=== PATIENT | female | born 1980 | race Hispanic/Latino ===

== ENCOUNTER 2018-04-05 16:15 | Emergency (ER) | payer SELFPAY | END 2018-04-05 21:40 | disposition left against medical advice (07) | LOC: M ED 16:15 | DX: Z53.21 Procedure and treatment not carried out due to patient leaving prior to being seen by health care provider (principal) ==

== ENCOUNTER 2018-04-06 01:19 | Emergency (ER) | payer SELFPAY | END 2018-04-06 03:30 | disposition left against medical advice (07) | LOC: M ED 01:19 | DX: R10.9 Unspecified abdominal pain (principal); Z53.20 Procedure and treatment not carried out because of patient's decision for unspecified reasons ==

== ENCOUNTER 2018-04-06 21:56 | Emergency (ER) | payer OTHER, SELFPAY ==
[2018-04-06 23:20] LABS: BASO % 0.2 % (0.0-1.0); EOS # 0.1 10^3/uL (0.0-0.50); EOS % 0.5 % (0.0-3.0); HEMATOCRIT 29.1 % (36.0-47.0); HEMOGLOBIN 9.1 g/dl (12.0-15.5); IMMATURE GRANULOCYTE % 0.6 % (0-3.0); LYMPH # 2.4 10^3/uL (1.5-4.5); LYMPH % 18.8 % (24.0-44.0); MEAN CORPUSCULAR HEMOGLOBIN 21.1 pg (27.0-33.0); MEAN CORPUSCULAR HGB CONC 31.3 g/dl (32.0-36.5); MEAN CORPUSCULAR VOLUME 67.4 fl (80.0-96.0); MONO # 0.6 10^3/uL (0.0-0.8); MONO % 4.4 % (0.0-5.0); NEUTROPHILS # 9.5 10^3/uL (1.8-7.7); NEUTROPHILS % 75.5 % (36.0-66.0); PLATELET COUNT, AUTOMATED 287 10^3/uL (150-450); RED BLOOD COUNT 4.32 10^6/uL (4.00-5.40); RED CELL DISTRIBUTION WIDTH 25.2 % (11.5-14.5); WHITE BLOOD COUNT 12.6 10^3/uL (4.0-10.0)
[2018-04-06 23:45] LABS: INR 1.02; PROTHROMBIN TIME 13.5 SECONDS (12.1-14.4)
[2018-04-06 23:46] LABS: PARTIAL THROMBOPLASTIN TIME 28.6 SECONDS (25.4-37.6)
[2018-04-06 23:48] LABS: CONTROL LINE HCG INT CTR LINE PRESENT; HCG, SERUM QUALITATIVE NEGATIVE (NEGATIVE)
[2018-04-06 23:54] LABS: ALBUMIN 3.2 GM/DL (3.2-5.2); ALBUMIN/GLOBULIN RATIO 0.67 (1.00-1.93); ALKALINE PHOSPHATASE 155 U/L (45-117); ALT/SGPT 30 U/L (12-78); ANION GAP 6 MEQ/L (8-16); AST/SGOT 18 U/L (7-37); BILIRUBIN,DIRECT < 0.1 MG/DL (0.0-0.2); BILIRUBIN,TOTAL 0.3 MG/DL (0.2-1.0); BLOOD UREA NITROGEN 7 MG/DL (7-18); CALCIUM LEVEL 7.7 MG/DL (8.5-10.1); CARBON DIOXIDE LEVEL 26 MEQ/L (21-32); CHLORIDE LEVEL 108 MEQ/L (98-107); CREATININE FOR GFR 0.83 MG/DL (0.55-1.30); GLOMERULAR FILTRATION RATE > 60.0 (>60); GLUCOSE, FASTING 143 MG/DL (70-100); LIPASE 135 U/L (73-393); POTASSIUM SERUM 3.3 MEQ/L (3.5-5.1); SODIUM LEVEL 140 MEQ/L (136-145)
[2018-04-06] MEDS: NS 1,000 ML IV (23:57)
[2018-04-07] MEDS: MORPHINE 4 MG/ML 1ML VIAL/SYRINGE (J2270) IV ×2 (01:00→02:22)
[2018-04-07 02:26] LABS: CHLAMYDIA DNA AMPLIFICATION NEGATIVE (NEGATIVE); GC DNA AMPLIFICATION NEGATIVE (NEGATIVE)
[2018-04-07] MEDS: POTASSIUM CHLORIDE 10 MEQ SR TABLET PO (02:50)
[2018-04-07] MEDS: metroNIDAZOLE (FLAGYL) 500 MG TAB PO (02:53)
== END 2018-04-07 03:09 | disposition home or self-care (01) ==
LOC: M ED 04-07 03:09
DX: N76.0 Acute vaginitis (principal)
CPT/HCPCS: J2270

== ENCOUNTER 2018-04-08 12:01 | Emergency (ER) | payer OTHER ==
[2018-04-08 14:36] LABS: HEMATOCRIT 28.3 % (36.0-47.0); HEMOGLOBIN 8.6 g/dl (12.0-15.5); MEAN CORPUSCULAR HEMOGLOBIN 20.6 pg (27.0-33.0); MEAN CORPUSCULAR HGB CONC 30.4 g/dl (32.0-36.5); MEAN CORPUSCULAR VOLUME 67.9 fl (80.0-96.0); PLATELET COUNT, AUTOMATED 278 10^3/uL (150-450); RED BLOOD COUNT 4.17 10^6/uL (4.00-5.40); RED CELL DISTRIBUTION WIDTH 25.4 % (11.5-14.5); WHITE BLOOD COUNT 9.6 10^3/uL (4.0-10.0)
[2018-04-08 14:48] LABS: INR 1.06; PROTHROMBIN TIME 13.9 SECONDS (12.1-14.4)
[2018-04-08 14:53] LABS: POSITIVE MORPH POS FLAG
[2018-04-08 15:00] LABS: ANION GAP 7 MEQ/L (8-16); BLOOD UREA NITROGEN 7 MG/DL (7-18); CALCIUM LEVEL 8.4 MG/DL (8.5-10.1); CARBON DIOXIDE LEVEL 27 MEQ/L (21-32); CHLORIDE LEVEL 108 MEQ/L (98-107); CREATININE FOR GFR 0.66 MG/DL (0.55-1.30); GLOMERULAR FILTRATION RATE > 60.0 (>60); GLUCOSE, FASTING 80 MG/DL (70-100); POTASSIUM SERUM 3.8 MEQ/L (3.5-5.1); SODIUM LEVEL 142 MEQ/L (136-145)
[2018-04-08] MEDS: NORCO, ANEXSIA 5/325MG TABLET (HYDROcodone/ACETAMINOPHEN) PO (15:13)
== END 2018-04-08 16:10 | disposition home or self-care (01) ==
LOC: M ED 12:01
DX: N93.8 Other specified abnormal uterine and vaginal bleeding (principal)
CPT/HCPCS: 80048

== ENCOUNTER → 2018-07-01 | Outpatient (REF) | payer OTHER ==
[~2018-07-01] MED LIST: FLAG500T PO; IBUP80TA PO; NORCOTAB PO; PROV10TA PO
[2018-07-01 18:37] LABS: ALBUMIN 3.2 GM/DL (3.2-5.2); ALT/SGPT 25 U/L (12-78); BILIRUBIN,TOTAL 0.3 MG/DL (0.2-1.0); BLOOD UREA NITROGEN 7 MG/DL (7-18); CARBON DIOXIDE LEVEL 28 MEQ/L (21-32); CHLORIDE LEVEL 107 MEQ/L (98-107); CHOLESTEROL LEVEL 147 MG/DL (<200); CHOLESTEROL RISK RATIO 2.826 (<5); FERRITIN 6 NG/ML (8-252); FREE T4 0.89 NG/DL (0.76-1.46); GLOMERULAR FILTRATION RATE > 60.0 (>60); GLUCOSE, FASTING 76 MG/DL (70-100); HDL CHOLESTEROL 52 MG/DL (>40); IRON (FE) 17 UG/DL (50-170); LDL CHOLESTEROL 82 MG/DL (<100); NON-HDL-C 95 MG/DL; PERCENT SATURATION 4.8 % (13.2-45.0); POTASSIUM SERUM 4.2 MEQ/L (3.5-5.1); SODIUM LEVEL 142 MEQ/L (136-145); TOTAL IRON BINDING CAPACITY 357 UG/DL (250-450); TOTAL PROTEIN 7.8 GM/DL (6.4-8.2); TRIGLYCERIDES LEVEL 67 MG/DL (<150)
[2018-07-01 18:38] LABS: VITAMIN B12 LEVEL 730 PG/ML (247-911)
[2018-07-01 19:00] LABS: HEMATOCRIT 25.9 % (36.0-47.0); HEMOGLOBIN 7.2 g/dl (12.0-15.5); MEAN CORPUSCULAR HEMOGLOBIN 16.7 pg (27.0-33.0); MEAN CORPUSCULAR HGB CONC 27.8 g/dl (32.0-36.5); MEAN CORPUSCULAR VOLUME 60.2 fl (80.0-96.0); PLATELET COUNT, AUTOMATED 282 10^3/uL (150-450); WHITE BLOOD COUNT 10.2 10^3/uL (4.0-10.0)
[2018-07-02 12:07] LABS: HEPATITIS C VIRUS ABY INDEX 0.1 INDEX (<0.8); HIV 1&2 SCREEN CENTAUR NEGATIVE (NEGATIVE)
== END ==
LOC: M SFHCPLAZ 15:18
PROVIDERS: ATTEND Physician Assistant
DX: F31.9 Bipolar disorder, unspecified (principal); D64.9 Anemia, unspecified; Z11.59 Encounter for screening for other viral diseases; Z11.4 Encounter for screening for human immunodeficiency virus [HIV]; Z13.220 Encounter for screening for lipoid disorders; Z23 Encounter for immunization
CPT/HCPCS: 36415; 80053; 80061; 82607; 82728; 83550; 84439; 84443; 85027; 85046; 86803; 87389; 90471; 90686; G0463

== ENCOUNTER 2018-08-12 12:20 | Outpatient (CLI) | payer OTHER ==
[~2018-08-12] VITALS: Ht 157.5 cm; Wt 90.9 kg
[~2018-08-12 12:20] MED LIST changes: +IRON SUCROSE 25 MG in NS 50 ML IV ONE; +IRON SUCROSE 75 MG in NS 100 ML IV ONE
[2018-08-12 12:30] VITALS: BP 140/68
[2018-08-12 13:15] VITALS: BP 113/64
[2018-08-12 14:15] VITALS: BP 138/79
[2018-08-12 15:10] VITALS: BP 118/69
[2018-08-12 15:40] VITALS: BP 118/67
== END 2018-08-12 15:40 | disposition home or self-care (01) ==
LOC: M INFU 12:20
PROVIDERS: ATTEND Physician Assistant
DX: D50.0 Iron deficiency anemia secondary to blood loss (chronic) (principal)
CPT/HCPCS: 96365; 96366; J1756

== ENCOUNTER 2018-10-13 18:03 | Emergency (ER) | payer OTHER ==
[~2018-10-13] VITALS: Ht 157.5 cm; Wt 93.5 kg
[~2018-10-13 18:03] MED LIST changes: +HYDR-3715 PO; -IRON SUCROSE 25 MG in NS 50 ML IV ONE; -IRON SUCROSE 75 MG in NS 100 ML IV ONE; -NORCOTAB PO
[2018-10-13] MEDS ORDERED: TRAZ1TAB14 (18:28)
[2018-10-13] MEDS ORDERED: ARIP1TAB10 (18:28)
[2018-10-13] MEDS ORDERED: TOPI25TA10 (18:28)
[2018-10-13 19:22] LABS: INFLUENZA A AMPLIFICATION NEGATIVE (NEGATIVE); INFLUENZA B AMPLIFICATION NEGATIVE (NEGATIVE)
[2018-10-13] MEDS ORDERED: MUCI600T37 PO (20:10)
[2018-10-13] MEDS ORDERED: BENZ200C70 PO (20:10)
[2018-10-13 20:24] VITALS: BP 133/78
--- NOTE | 2018-10-13 20:44 | REP ---
clinical: Cough and fever . Comparison: None . Findings: The mediastinum and cardiac silhouette are stable and within normal limits for portable technique. The lung chu are clear without acute consolidation, effusion, or pneumothorax. Skeletal structures are intact. Impression: No acute cardiopulmonary process appreciated. Electronically Signed by Stuart Rivas MD 10/13/2018 08:36 P
== END 2018-10-13 20:25 | disposition home or self-care (01) ==
LOC: M ED 18:03
DX: J06.9 Acute upper respiratory infection, unspecified (principal)

== ENCOUNTER 2018-10-21 23:32 | Inpatient (IN) | payer OTHER ==
[~2018-10-21] VITALS: Ht 157.5 cm; Wt 94.3 kg
[~2018-10-21 23:32] MED LIST changes: +ARIP1TAB10; +BENZ200C70 PO; +MUCI600T37 PO; +TOPI25TA10; +TRAZ1TAB14
[2018-10-21] MEDS ORDERED: IRON65TA (23:37)
[2018-10-22 00:41] LABS: ALBUMIN 3.1 GM/DL (3.2-5.2); ALT/SGPT 36 U/L (12-78); BILIRUBIN,TOTAL 0.5 MG/DL (0.2-1.0); BLOOD UREA NITROGEN 11 MG/DL (7-18); C REACTIVE PROTEIN QUANTITATIV 4.42 MG/DL (0.00-0.30); CALCIUM LEVEL 7.9 MG/DL (8.5-10.1); CARBON DIOXIDE LEVEL 26 MEQ/L (21-32); CHLORIDE LEVEL 105 MEQ/L (98-107); CREATININE FOR GFR 0.78 MG/DL (0.55-1.30); GLOMERULAR FILTRATION RATE > 60.0 (>60); GLUCOSE, FASTING 113 MG/DL (70-100); LIPASE 120 U/L (73-393); POTASSIUM SERUM 3.7 MEQ/L (3.5-5.1); SODIUM LEVEL 138 MEQ/L (136-145); TOTAL PROTEIN 7.9 GM/DL (6.4-8.2)
[2018-10-22 00:46] LABS: BASO % 0.2 % (0.0-1.0); EOS # 0.2 10^3/uL (0.0-0.50); EOS % 1.8 % (0.0-3.0); HEMATOCRIT 23.7 % (36.0-47.0); LYMPH # 2.8 10^3/uL (1.5-4.5); LYMPH % 24.3 % (24.0-44.0); MEAN CORPUSCULAR HEMOGLOBIN 17.4 pg (27.0-33.0); MEAN CORPUSCULAR HGB CONC 29.1 g/dl (32.0-36.5); MEAN CORPUSCULAR VOLUME 59.7 fl (80.0-96.0); MONO # 0.5 10^3/uL (0.0-0.8); MONO % 4.1 % (0.0-5.0); NEUTROPHILS # 7.8 10^3/uL (1.8-7.7); NEUTROPHILS % 68.7 % (36.0-66.0); PLATELET COUNT, AUTOMATED 250 10^3/uL (150-450); RED BLOOD COUNT 3.97 10^6/uL (4.00-5.40); WHITE BLOOD COUNT 11.4 10^3/uL (4.0-10.0)
[2018-10-22 00:47] LABS: HEMOGLOBIN 6.9 g/dl (12.0-15.5)
[2018-10-22 01:10] LABS: URINE PREG TEST NEGATIVE (NEGATIVE)
[2018-10-22] MEDS ORDERED: ISOVUE-370 76% 100ML VIAL (Q9967) As Ordered ONE (01:56)
[2018-10-22] MEDS ORDERED: ONDANSETRON 4MG/2ML VIAL (J2405) IV ONE (02:00)
[2018-10-22 02:24] LABS: INR 1.1; PROTHROMBIN TIME 14.3 SECONDS (12.1-14.4)
[2018-10-22 02:25] LABS: PARTIAL THROMBOPLASTIN TIME 29.9 SECONDS (25.4-37.6)
[2018-10-22] MEDS: MORPHINE 4 MG/ML 1ML VIAL/SYRINGE (J2270) IV PRN ×2 (02:26→05:37)
--- NOTE | 2018-10-22 04:05 | REPVR ---
EXAM: CT Abdomen and Pelvis With Contrast EXAM DATE/TIME: 10/22/2018 2:29 AM CLINICAL HISTORY: 38 years old, female; Pain; Abdominal pain; Additional info: Abd pain TECHNIQUE: Imaging protocol: Axial computed tomography images of the abdomen and pelvis with intravenous contrast. Coronal and sagittal reformatted images were created and reviewed. Radiation optimization: All CT scans at this facility use at least one of these dose optimization techniques: automated exposure control; mA and/or kV adjustment per patient size (includes targeted exams where dose is matched to clinical indication); or iterative reconstruction. Contrast material: isovue 370 Contrast volume: 100 ml Contrast route: iv COMPARISON: US PELVIC NON-OB COMPLETE 04/07/2018 1:16 AM FINDINGS: Lower thorax: No acute findings. ABDOMEN: Liver: The spleen measures 12.8 cm and is borderline relative to the liver. Gallbladder and bile ducts: Status post cholecystectomy. Pancreas: Normal. No ductal dilation. Spleen: Normal. No splenomegaly. Adrenals: Normal. No mass. Kidneys and ureters: Minimal nonobstructing left renal calculus. Stomach and bowel: Borderline distention of proximal jejunum which is nonspecific and may reflect volume loading. Enteritis is not excluded. Appendix: A normal appendix is seen. PELVIS: Bladder: Unremarkable as visualized. Reproductive: Unremarkable as visualized. ABDOMEN and PELVIS: Intraperitoneal space: Normal. No free air. No significant fluid collection. Bones/joints: Degenerative disc and facet change at L5-S1. Soft tissues: Unremarkable. Vasculature: Normal. No abdominal aortic aneurysm. Lymph nodes: Normal. No enlarged lymph nodes. IMPRESSION: 1. Minimal nonobstructing left renal calculus. 2. Status post cholecystectomy. 3. Borderline splenomegaly. 4. Borderline distention of proximal jejunum which may reflect volume loading. Enteritis is not excluded. Electronically signed by: Manolo Syed On 10/22/2018 04:04:38 AM
[2018-10-22] MEDS ORDERED: ACETAMINOPHEN TAB 650MG DOSE (2X325MG) PO PRN (05:00)
--- NOTE | 2018-10-22 05:28 | HPEPDOC ---
[facility] Medical History & Physical Date of Admission Oct 22, 2018 Primary Care Physician: CARMELO IRVIN PA-C History and Physical CHIEF COMPLAINT: vaginal bleeding and lightheadedness HISTORY OF PRESENT ILLNESS: Jennifer Peres is a 38 YO with known history of uterine fibroids (diagnosed in 2011 in [place], [place]) who presents with heavy vaginal bleeding, palpitations and lightheadedness. She last bled for over 2 weeks and it stopped four days ago. She states that she used to live in [place], [place] where she first experienced heavy intermittent vaginal bleeding and was told by her Mooner that she has several large fibroids that needed to be removed surgically. She was never able to get the surgery and since that time has been bleeding intermittently, sometimes heavy enough to keep her bedridden for several days, accompanied by severe lower abdominal and pelvic pain. Gynecologic history is significant for 5 children, all uncomplicated vaginal births, with last child born in 2003. She does not report any symptoms of menopause at this time, and her menstrual cycle is unpredictable. She is not on any contraceptives. Otherwise, she has not been sick recently, denies any SOB or CP, no headaches, no fevers/chills/nausea/vomiting. She has not had any black tarry or maroon stools and denies any dysuria. She does not follow with a PCP. PAST MEDICAL HISTORY: 1. Uterine fibroids 2. Depression 3. Generalized Anxiety Disorder 4. Schizophrenia PAST SURGICAL HISTORY: 1. Cholecystectomy SOCIAL HISTORY: Lives with her sister and children in [place]. Never smoker. Denies EtOH or other drugs. Patient's first language is [place] Irish, but she is able to communicate in Azerbaijani. FAMILY HISTORY: Mother had fibroids ALLERGIES: Please see below. REVIEW OF SYSTEMS: CONSTITUTIONAL: reports weakness, lightheadedness CARDIOVASCULAR: palpitations RESPIRATORY: no SOB, no dyspnea GASTROINTESTINAL: no diarrhea, reports lower abdominal pain GENITOURINARY: no dysuria SKIN: no rashes MUSCULOSKELETAL: no muscle weakness NEUROLOGICAL: no loss of sensation, no burning PSYCHIATRIC: reports depression, anxiety ENDOCRINE: no hot/cold intolerance HEMATOLOGIC/LYMPHATIC: no easy bruising HOME MEDICATIONS: Please see below. PHYSICAL EXAMINATION: VITAL SIGNS: Temperature 97.9, pulse 84, respiratory rate 20, blood pressure 114/59, pulse oximetry 98% on room air. GENERAL APPEARANCE: laying in bed, comfortable, no acute distress, appears stated age HEENT: moist mucus membranes, no thyromegaly, fair dentition CARDIOVASCULAR: RRR, no murmurs/rubs/gallops LUNGS: clear to auscultation bilaterally without any adventitious breath sounds appreciated ABDOMEN: tender to deep palpation in RLQ and LLQ; soft, +BS, no organomegaly MUSCULOSKELETAL: moves all extremities well EXTREMITIES: no clubbing/cyanosis/edema NEUROLOGICAL: CN 2-12 intact without focal deficits PSYCHIATRIC: somewhat anxious affect LABORATORY DATA: See below. IMAGING: CT Abdomen/pelvis: 1. Minimal nonobstructing left renal calculus. 2. Status post cholecystectomy. 3. Borderline splenomegaly. 4. Borderline distention of proximal jejunum which may reflect volume loading. Enteritis is not excluded. MICROBIOLOGY: Please see below. ASSESSMENT: This is a 38 YO F with known history of uterine fibroids who presents with several days history of heavy uterine bleeding and lower abdominal pain found to be anemic with Hgb 6.9 most likely 2/2 bleeding uterine fibroids PLAN: 1. Microcytic Anemia: Patient states she has had a ~10 day history of recent heavy bleeding and lower abdominal pain and subsequent lightheadedness. Likely 2/2 abnormal uterine bleeding from fibroids. Otherwise, she has no history of bleeding disorder and is not on any medications causing hyperprolactinemia. No history of thyroid disease or hypothalamic dysfunction. She does have an elevated CRP, suggesting inflammatory cause of abnormal uterine bleeding. -4U pRBCs ordered in ED -Will get follow up CBC 2. Uterine fibroids: -Patient will need Gynecology consult in AM -Abdominal US states reproductive organs unremarkable; patient may need vaginal ultrasound for further investigation 3. History of Depression and Anxiety: -Patient may benefit from outpatient screening. Will need PCP at discharge. DVT Ppx: stockings CODE STATUS: FULL CODE Vital Signs Vital Signs Date Time Temp Pulse Resp B/P (MAP) Pulse Ox O2 Delivery O2 Flow Rate FiO2 10/22/18 04:00 20 114/59 (77) 98 Room Air 10/22/18 03:47 84 10/22/18 02:26 97.9 Laboratory Data Labs 24H Laboratory Tests 2 10/22/18 00:06: Immature Granulocyte % (Auto) 0.9, White Blood Count 11.4H, Red Blood Count 3.97L, Hemoglobin 6.9*L, Hematocrit 23.7L, Mean Corpuscular Volume 59.7L, Mean Corpuscular Hemoglobin 17.4L, Mean Corpuscular Hemoglobin Concent 29.1L, Red Cell Distribution Width 20.2H, Platelet Count 250, Neutrophils (%) (Auto) 68.7H, Lymphocytes (%) (Auto) 24.3, Monocytes (%) (Auto) 4.1, Eosinophils (%) (Auto) 1.8, Basophils (%) (Auto) 0.2, Neutrophils # (Auto) 7.8H, Lymphocytes # (Auto) 2.8, Monocytes # (Auto) 0.5, Eosinophils # (Auto) 0.2, Basophils # (Auto) 0.0, N ucleated Red Blood Cells % (auto) 0.0, Prothrombin Time 14.3, Prothromb Time International Ratio 1.10, Activated Partial Thromboplast Time 29.9, Anion Gap 7L, Glomerular Filtration Rate > 60.0, Blood Urea Nitrogen 11, Creatinine 0.78, Sodium Level 138, Potassium Level 3.7, Chloride Level 105, Carbon Dioxide Level 26, Calcium Level 7.9L, Aspartate Amino Transf (AST/SGOT) 16, Alanine Aminotransferase (ALT/SGPT) 36, Alkaline Phosphatase 163H, Total Bilirubin 0.5, Total Protein 7.9, Albumin 3.1L, C-Reactive Protein, Quantitative 4.42H, Albumin/Globulin Ratio 0.65L, Lipase 120 10/22/18 00:54: Urine Color YELLOW, Urine Appearance CLOUDYH, Urine pH 6.0, Urine Specific [place] 1.006, Urine Protein NEGATIVE, Urine Glucose (UA) NEGATIVE, Urine Ketones NEGATIVE, Urine Blood 2+H, Urine Nitrite NEGATIVE, Urine Bilirubin NEGATIVE, Urine Urobilinogen 0.2, Urine Leukocyte Esterase 3+H, Urine WBC (Auto) 3, Urine RBC (Auto) 13H, Urine Hyaline Casts (Auto) 0, Urine Bacteria (Auto) 2+H , Urine Squamous Epithelial Cells 11, Urine Sperm (Auto) , Urine Test NEGATIVE CBC/BMP Laboratory Tests 10/22/18 00:06 Red Blood Count 3.97 L, Mean Corpuscular Volume 59.7 L, Mean Corpuscular Hemoglobin 17.4 L, Mean Corpuscular Hemoglobin Concent 29.1 L, Red Cell Distr ibution Width 20.2 H, Neutrophils (%) (Auto) 68.7 H, Lymphocytes (%) (Auto) 24.3, Monocytes (%) (Auto) 4.1, Eosinophils (%) (Auto) 1.8, Basophils (%) (Auto) 0.2, Neutrophils # (Auto) 7.8 H, Lymphocytes # (Auto) 2.8, Monocytes # (Auto) 0.5, Eosinophils # (Auto) 0.2, Basophils # (Auto) 0.0, Calcium Level 7.9 L, Aspartate Amino Transf (AST/SGOT) 16, Alanine Aminotransferase (ALT/SGPT) 36, Alkaline Phosphatase 163 H, Total Bilirubin 0.5, Total Protein 7.9, Albumin 3.1 L Microbiology Microbiology 10/22/18 Urine Culture, Received Pending Home Medications No Active Prescriptions or Reported Meds Allergies Coded Allergies: No Known Allergies (Unverified , 10/21/18) GME ATTESTATION GME ATTESTATION My faculty preceptor for this patient encounter was physically present during the encounter and was fully available. All aspects of the patient interview, e xamination, medical decision making process, and medical care plan development were reviewed and approved by the faculty preceptor. The faculty preceptor is aware and concurs with the plan as stated in the body of this note and will attest to such by his/her cosignature. ATTENDING NOTE ATTENDING ATTESTATION: I discussed and reviewed the findings and plan with resident. I have personally assessed patient at bedside and agreed with resident's assessment and plans. KIKO CONWAY MD Oct 22, 2018 05:28 PIETER SCOTT MD Oct 22, 2018 06:35
[2018-10-22 06:30] VITALS: BP 124/76
[2018-10-22 07:24] LABS: FREE T4 0.98 NG/DL (0.76-1.46)
[2018-10-22 07:36] LABS: BLOOD UREA NITROGEN 8 MG/DL (7-18); CALCIUM LEVEL 7.9 MG/DL (8.5-10.1); CARBON DIOXIDE LEVEL 25 MEQ/L (21-32); CHLORIDE LEVEL 107 MEQ/L (98-107); CREATININE FOR GFR 0.67 MG/DL (0.55-1.30); GLOMERULAR FILTRATION RATE > 60.0 (>60); GLUCOSE, FASTING 109 MG/DL (70-100); POTASSIUM SERUM 3.9 MEQ/L (3.5-5.1); SODIUM LEVEL 138 MEQ/L (136-145)
[2018-10-22 07:36] LABS: HEMATOCRIT 26.2 % (36.0-47.0); HEMOGLOBIN 7.7 g/dl (12.0-15.5); MEAN CORPUSCULAR HEMOGLOBIN 18.2 pg (27.0-33.0); MEAN CORPUSCULAR HGB CONC 29.4 g/dl (32.0-36.5); MEAN CORPUSCULAR VOLUME 61.8 fl (80.0-96.0); PLATELET COUNT, AUTOMATED 239 10^3/uL (150-450); RED BLOOD COUNT 4.24 10^6/uL (4.00-5.40); WHITE BLOOD COUNT 10.5 10^3/uL (4.0-10.0)
[2018-10-22 10:00] VITALS: BP 117/60
--- NOTE | 2018-10-22 10:56 | IPNPDOC ---
Subjective Date Seen The patient was seen on 10/22/18. Subjective Chief Complaint/HPI Wilmar does not speak Mohawk well. Staff in process of locating IPAD autobody technician device She was transfused 1 units PRBC. Still feels lightheaded and slightly SOB. No CP. No vaginal bleeding since Thursday. Continues to have lower abdominal pain Constitutional: Denies: Chills, Fever Pulmonary: Reports: Dyspnea; Denies: Cough Cardiovascular: Denies: Chest Pain, Palpitations Gastrointestinal: Reports: Abdominal Pain; Denies: Nausea, Vomiting, Diarrhea, Constipation, Melena, Hematochezia Genitourinary: Denies: Dysuria, Frequency, Incontinence, Hematuria Objective Physical Examination General Exam: Positive: Alert, No Acute Distress Chest Exam: Positive: Clear to auscultation; Negative: Rales, Rhonchi, Wheezing Heart Exam: Positive: Rate Normal, Regular Rhythm Abdomen Exam: Positive: Normal bowel sounds, Soft, Tenderness (diffuse lower abd tenderness iwhtout guard) Assessment /Plan Problems (1) Symptomatic anemia Status: Acute Problem Text: Hgb improved after 1 unit PRBC - now = 7.7, but still lightheaded and slightly SOB. I will transfuse another unit today (2) Dysfunctional uterine bleeding Status: Chronic Problem Text: Consult ATHLETICS DIRECTOR Having pelvic pain- get pelvic US Give ibuprofen prn (3) Bipolar 1 disorder Status: Chronic Problem Text: Per office note from Rafa Mohan in July 2018, her Trazadone, Tomapax and Hydroxzine were refilled but she did not pick them up due to lack of funds Was supposed to hav appt with on July We will need to get autobody technician to determine if she is taking her meds and following with Plan/VTE VTE Prophylaxis Ordered?: Yes VTE Exclusion Mechanical Proph: Low Risk for VTE VTE Exclusion Pharmacological: Active Bleeding (SCD/TEDS) VS, I&O, 24H, Fishbone Vital Signs/I&O Vital Signs Date Time Temp Pulse Resp B/P (MAP) Pulse Ox O2 Delivery O2 Flow Rate FiO2 10/22/18 10:00 97.5 81 18 117/60 (79) 98 10/22/18 05:45 Room Air Laboratory Data 24H LABS Laboratory Tests 2 10/22/18 00:06: Immature Granulocyte % (Auto) 0.9, White Blood Count 11.4H, Red Blood Count 3.97L, Hemoglobin 6.9*L, Hematocrit 23.7L, Mean Corpuscular Volume 59.7L, Mean Corpuscular Hemoglobin 17.4L, Mean Corpuscular Hemoglobin Concent 29.1L, Red Cell Distribution Width 20.2H, Platelet Count 250, Neutrophils (%) (Auto) 68.7H, Lymphocytes (%) (Auto) 24.3, Monocytes (%) (Auto) 4.1, Eosinophils (%) (Auto) 1.8, Basophils (%) (Auto) 0.2, Neutrophils # (Auto) 7.8H, Lymphocytes # (Auto) 2.8, Monocytes # (Auto) 0.5, Eosinophils # (Auto) 0.2, Basophils # (Auto) 0.0, Nucleated Red Blood Cells % (auto) 0.0, Prothrombin Time 14.3, Prothromb Time I nternational Ratio 1.10, Activated Partial Thromboplast Time 29.9, Anion Gap 7L, Glomerular Filtration Rate > 60.0, Blood Urea Nitrogen 11, Creatinine 0.78, Sodium Level 138, Potassium Level 3.7, Chloride Level 105, Carbon Dioxide Level 26, Calcium Level 7.9L, Aspartate Amino Transf (AST/SGOT) 16, Alanine Aminotransferase (ALT/SGPT) 36, Alkaline Phosphatase 163H, Total Bilirubin 0.5, Total Protein 7.9, Albumin 3.1L, C-Reactive Protein, Quantitative 4.42H, Albumin/Globulin Ratio 0.65L, Lipase 120 10/22/18 00:54: Urine Color YELLOW, Urine Appearance CLOUDYH, Urine pH 6.0, Urine Specific [place] 1.006, Urine Protein NEGATIVE, Urine Glucose (UA) NEGATIVE, Urine Ketones NEGATIVE, Urine Blood 2+H, Urine Nitrite NEGATIVE, Urine Bilirubin NEGATIVE, Urine Urobilinogen 0.2, Urine Leukocyte Esterase 3+H, Urine WBC (Auto) 3, Urine RBC (Auto) 13H, Urine Hyaline Casts (Auto) 0, Urine Bacteria (Auto) 2+H, Urine Squamous Epithelial Cells 11, Urine Sperm (Auto) , Urine Test NEGATIVE 10/22/18 06:03: Nucleated Red Blood Cells % (auto) 0.2H 10/22/18 06:05: Anion Gap 6L, Glomerular Filtration Rate > 60.0, Blood Urea Nitrogen 8, Creati nine 0.67, Sodium Level 138, Potassium Level 3.9, Chloride Level 107, Carbon Dioxide Level 25, Calcium Level 7.9L, Thyroid Stimulating Hormone (TSH) 5.890H, Free Thyroxine 0.98 CBC/BMP Laboratory Tests 10/22/18 00:06 Red Blood Count 3.97 L, Mean Corpuscular Volume 59.7 L, Mean Corpuscular Hemoglobin 17.4 L, Mean Corpuscular Hemoglobin Concent 29.1 L, Red Cell Distribution Width 20.2 H, Neutrophils (%) (Auto) 68.7 H, Lymphocytes (%) (Auto) 24.3, Monocytes (%) (Auto) 4.1, Eosinophils (%) (Auto) 1.8, Basophils (%) (Auto) 0.2, Neutrophils # (Auto) 7.8 H, Lymphocytes # (Auto) 2.8, Monocytes # (Auto) 0.5, Eosinophils # (Auto) 0.2, Basophils # (Auto) 0.0, Calcium Level 7.9 L, A spartate Amino Transf (AST/SGOT) 16, Alanine Aminotransferase (ALT/SGPT) 36, Alkaline Phosphatase 163 H, Total Bilirubin 0.5, Total Protein 7.9, Albumin 3.1 L 10/22/18 06:03 Red Blood Count 4.24, Mean Corpuscular Volume 61.8 L, Mean Corpuscular Hemoglobin 18.2 L, Mean Corpuscular Hemoglobin Concent 29.4 L, Red Cell Distribution Width 22.9 H 10/22/18 06:05 Calcium Level 7.9 L Microbiology Microbiology 10/22/18 Urine Culture, Received Pending NIA LAM PA-C Oct 22, 2018 10:56
[2018-10-22] MEDS: KETOROLAC 30 MG/ML VIAL (J1885) IV PRN ×2 (12:42→20:48)
--- NOTE | 2018-10-22 13:41 | REP ---
PELVIC ULTRASOUND: Real-time sonographic evaluation of the pelvis is performed utilizing transabdominal and endovaginal technique. Comparison made with a prior study of 04/07/2018. Bladder measures 7.2 x 3.5 x 7.9 cm. The uterus measures 10.0 x 4.9 x 5.6 cm. Endometrial thickness is 14 mm. Nabothian cysts are seen in the region of the cervix. Right ovary is enlarged measuring 6.6 x 3.6 x 8.5 cm. Multiple cysts are seen in the right ovary, come simple in appearance and others appear hemorrhagic. Largest complex cyst is 4.4 x 3.6 x 4.3 cm. There are two simple appearing cysts 5.2 x 4.8 x 2.9 cm and 3.1 x 2.9 x 3.0 cm. These have increased since prior pelvic ultrasound. No cyst is seen in the left ovary. There is no torsion with duplex Doppler evaluation, RI right ovary 0.56 and left ovary 0.45. No free fluid is seen. IMPRESSION: Endometrial thickness is 14 mm. Nabothian cysts are seen in the region of the cervix. Multiple right ovarian cyst as discussed above. These have increased since prior ultrasound of 04/07/2018. Consider CNC OPERATOR PROGRAMMER consult, and I would recommend followup ultrasound in about 2 months if no intervention is planned. Electronically Signed by Rafa Long MD 10/22/2018 04:19 P
[2018-10-22 14:00] VITALS: BP 121/87
--- NOTE | 2018-10-22 16:54 | IPNPDOC ---
Text Note Date of Service The patient was seen on 10/22/18. NOTE OBGYN consult Whole interview done with the assistance of the ipad fixer supervisor 38 YO with known history of uterine fibroids (diagnosed in 2011 in [place], [place]) who presents with heavy vaginal bleeding, palpitations and lightheadedness. She last bled for over 2 weeks and it stopped four days ago. She states that she used to live in [place], [place] where she first experienced heavy intermittent vaginal bleeding and was told by her Gantry Crane Operator that she has several large fibroids that needed to be removed surgically. She was never able to get the surgery and since that time has been bleeding intermittently, sometimes heavy enough to keep her bedridden for several days, accompanied by severe lower abdominal and pelvic pain. Has been transfused 4 different times. Gynecologic history is significant for 5 children, all uncomplicated vaginal births, with last child born in 2003. She does not report any symptoms of menopause at this time, and her menstrual cycle is unpredictable. She is not on any contraceptives. Otherwise, she has not been sick recently, denies any SOB or CP or significant abdominal pain, no headaches, no fevers/chills/nausea/vomting/weight loss. Has had one unit of blood in the ED and states she feels somewhat better but is still dizzy when she stands up and walks ro the bathroom. PAST MEDICAL HISTORY: 1. Uterine fibroids 2. Bipolar Depression 3. Generalized Anxiety Disorder PAST SURGICAL HISTORY: No cesareans 1. Cholecystectomy 2. BTL in 2003, done lapartoscopically SOCIAL HISTORY: Lives with her sister (bilingual) and children in [place]. Never smoker. Denies EtOH or other drugs. Safe at home. Patient's first language is Irish, but she is able to communicate in Burundian. 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 FAMILY HISTORY: Mother had fibroids ALLERGIES: Please see below. Meds: denies CT: IMPRESSION: 1. Minimal nonobstructing left renal calculus. 2. Status post cholecystectomy. 3. Borderline splenomegaly. 4. Borderline distention of proximal jejunum which may reflect volume loading. Enteritis is not excluded. PELVIC ULTRASOUND: Real-time sonographic evaluation of the pelvis is performed utilizing transabdominal and endovaginal technique. Comparison made with a prior study of 04/07/2018. Bladder measures 7.2 x 3.5 x 7.9 cm. The uterus measures 10.0 x 4.9 x 5.6 cm. Endometrial thickness is 14 mm. Nabothian cysts are seen in the region of the cervix. Right ovary is enlarged measuring 6.6 x 3.6 x 8.5 cm. Multiple cysts are seen in the right ovary, come simple in appearance and others appear hemorrhagic. Largest complex cyst is 4.4 x 3.6 x 4.3 cm. There are two simple appearing cysts 5.2 x 4.8 x 2.9 cm and 3.1 x 2.9 x 3.0 cm. These have increased since prior pelvic ultrasound. No cyst is seen in the left ovary. There is no torsion with duplex Doppler evaluation, RI right ovary 0.56 and left ovary 0.45. No free fluid is seen. IMPRESSION: Endometrial thickness is 14 mm. Nabothian cysts are seen in the region of the cervix. Multiple right ovarian cyst as discussed above. These have increased since prior ultrasound of 04/07/2018. Consider SAS STATISTICAL PROGRAMMER consult, and I would recommend followup ultrasound in about 2 months if no intervention is planned. a/p: Menorrhagia with stated h/o fibroids although US does not remark on this. More concerning is her menorrhagia that has required transfusion 4 separate times over the last ~10 years and also her complex ovarian cyst on the right. Nl left ovary. Childbearing is complete. I rec a scheduled hysterectomy. I also recommend currently one more unit of blood, then discharge. I plan to see her in the office next week and do an endometrial biopsy and schedule a hysterectomy/RSO within 3-4 weeks, route TBD. Plan d/w pt and she stated understanding with translator/interpreter assistance and she also gave me permission to call her sister Sisi at [phone] and schedule her office visits, preop labs and surgery through her. All ??'s answered. Sessions Ger BORREGO I+O Ger VERMA I+O Laboratory Tests 10/22/18 00:06 Red Blood Count 3.97 L, Mean Corpuscular Volume 59.7 L, Mean Corpuscular Hemoglobin 17.4 L, Mean Corpuscular Hemoglobin Concent 29.1 L, Red Cell Distribution Width 20.2 H, Neutrophils (%) (Auto) 68.7 H, Lymphocytes (%) (Auto) 24.3, Monocytes (%) (Auto) 4.1, Eosinophils (%) (Auto) 1.8, Basophils (%) (Auto) 0.2, Neutrophils # (Auto) 7.8 H, Lymphocytes # (Auto) 2.8, Monocytes # (Auto) 0.5, Eosinophils # (Auto) 0.2, Basophils # (Auto) 0.0, Calcium Level 7.9 L, Aspartate Amino Transf (AST/SGOT) 16, Alanine Aminotransferase (ALT/SGPT) 36, Alkaline Phosphatase 163 H, Total Bilirubin 0.5, Total Protein 7.9, Albumin 3.1 L 10/22/18 06:03 Red Blood Count 4.24, Mean Corpuscular Volume 61.8 L, Mean Corpuscular Hemoglobin 18.2 L, Mean Corpuscular Hemoglobin Concent 29.4 L, Red Cell Distribution Width 22.9 H 10/22/18 06:05 Calcium Level 7.9 L Vital Signs Date Time Temp Pulse Resp B/P (MAP) Pulse Ox O2 Delivery O2 Flow Rate FiO2 10/22/18 14:00 97.2 73 18 121/87 (98) 98 10/22/18 05:45 Room Air SESSIONS,DAKOTA Velazquez MD Oct 22, 2018 16:54
[2018-10-22 18:00] VITALS: BP 131/78
[2018-10-22 22:00] VITALS: BP 163/79
[2018-10-23 02:00] VITALS: BP 121/65
[2018-10-23 06:00] VITALS: BP 110/54
[2018-10-23 06:23] LABS: HEMATOCRIT 28.4 % (36.0-47.0); HEMOGLOBIN 8.6 g/dl (12.0-15.5); MEAN CORPUSCULAR HEMOGLOBIN 19.2 pg (27.0-33.0); MEAN CORPUSCULAR HGB CONC 30.3 g/dl (32.0-36.5); MEAN CORPUSCULAR VOLUME 63.4 fl (80.0-96.0); PLATELET COUNT, AUTOMATED 239 10^3/uL (150-450); RED BLOOD COUNT 4.48 10^6/uL (4.00-5.40); WHITE BLOOD COUNT 9.6 10^3/uL (4.0-10.0)
[2018-10-23 06:47] LABS: BLOOD UREA NITROGEN 9 MG/DL (7-18); CALCIUM LEVEL 8.2 MG/DL (8.5-10.1); CARBON DIOXIDE LEVEL 27 MEQ/L (21-32); CHLORIDE LEVEL 107 MEQ/L (98-107); CREATININE FOR GFR 0.73 MG/DL (0.55-1.30); GLOMERULAR FILTRATION RATE > 60.0 (>60); GLUCOSE, FASTING 104 MG/DL (70-100); SODIUM LEVEL 138 MEQ/L (136-145)
[2018-10-23 10:00] VITALS: BP 135/72
[2018-10-23 14:00] VITALS: BP 122/77
[2018-10-23] MEDS ORDERED: FERR325T3 PO (14:44)
--- NOTE | 2018-10-24 10:24 | DSES ---
DATE OF ADMISSION: 10/22/2018 DATE OF DISCHARGE: 10/23/2018 DISCHARGE DIAGNOSES: Menorrhagia with secondary symptomatic blood loss anemia with admission hemoglobin of 6.9. Uterine fibroids. Complex right ovarian cyst 4.3 x 4.4 cm. Left nonobstructive nephrocalculus. Borderline splenomegaly. Obesity, morbid. HOSPITAL COURSE: The patient was admitted for symptomatic acute blood loss anemia secondary to menorrhagia. She was transfused 2 units of packed red blood cells, such that by discharge her hemoglobin was up to 8.6. Her ferritin was 6. Transferrin saturation 5. B12 was 730. Her pelvic ultrasound and abdominal CT abdomen and pelvis showed findings as per discharge diagnoses. The patient had been referred to bike shop manager by her primary care provider to consider hysterectomy, but the bike shop manager she was referred to was not covered by insurance. Therefore, while admitted Dr. Rafa Urena from [place] was consulted who saw the patient in consult and recommended endometrial biopsy next week and then planned hysterectomy with RSO. He felt she was stable for discharge given her vaginal bleeding had stopped. The patient was discharged to home with ferrous sulfate 325 daily and I recommended IV ibuprofen 500 every 6 as needed for pelvic pain which was pretty much resolved at discharge. She will followup with Dr. Urena in 5 to 7 days and her primary care provider in 7 days. Discharge instructions were given to the patient's daughter who spoke fluent Taiwanese and was relayed to the patient at time of discharge.
== END 2018-10-23 16:23 | disposition home or self-care (01) | DRG 812 ==
LOC: M ED 23:32 → M ED INP 23:33 → M MSPAV 10-22 06:14 → OBSVTOIN 10-22 15:27
PROVIDERS: ADMIT Student in an Organized Health Care Education/Training Program; ATTEND Family Medicine
PROC: 30233N1 Transfusion of Nonautologous Red Blood Cells into Peripheral Vein, Percutaneous Approach (ICD-10-PCS; principal; 2018-10-22)
DX: D62 Acute posthemorrhagic anemia (principal); N92.0 Excessive and frequent menstruation with regular cycle; E66.01 Morbid (severe) obesity due to excess calories; N83.291 Other ovarian cyst, right side; D25.9 Leiomyoma of uterus, unspecified; F41.1 Generalized anxiety disorder; F20.9 Schizophrenia, unspecified; N20.0 Calculus of kidney

== ENCOUNTER → 2018-10-27 | Outpatient (REF) | payer OTHER ==
[~2018-10-27] MED LIST changes: +ACET-897 PO; +ARIP1TAB10 PO; +FERR325T3 PO; +HYDR50CA2 PO; +IRON65TA; +NAPR500T6 PO; +OXAY1TAB PO; +OXYC-517; +OXYC1TAB23 PO; +TOPI25CA PO; +TRAZ1TAB14 PO
== END ==
LOC: M LAB REF 11:18
PROVIDERS: ATTEND Obstetrics & Gynecology
DX: Z12.4 Encounter for screening for malignant neoplasm of cervix (principal)

== ENCOUNTER 2018-10-30 19:59 | Emergency (ER) | payer OTHER ==
[~2018-10-30] VITALS: Ht 157.5 cm; Wt 105.9 kg
[~2018-10-30 19:59] MED LIST changes: -ACET-897 PO; -ARIP1TAB10 PO; -HYDR50CA2 PO; -NAPR500T6 PO; -OXAY1TAB PO; -OXYC-517; -OXYC1TAB23 PO; -TOPI25CA PO; -TRAZ1TAB14 PO
[2018-10-30] MEDS ORDERED: KETOROLAC 30 MG/ML VIAL (J1885) IV ONE (20:45)
[2018-10-30 21:01] LABS: BASO % 0.3 % (0.0-1.0); EOS # 0.1 10^3/uL (0.0-0.50); EOS % 1.4 % (0.0-3.0); HEMATOCRIT 29.7 % (36.0-47.0); HEMOGLOBIN 8.9 g/dl (12.0-15.5); LYMPH # 2.5 10^3/uL (1.5-4.5); LYMPH % 25.9 % (24.0-44.0); MEAN CORPUSCULAR HEMOGLOBIN 19.5 pg (27.0-33.0); MONO # 0.5 10^3/uL (0.0-0.8); MONO % 5.1 % (0.0-5.0); NEUTROPHILS # 6.5 10^3/uL (1.8-7.7); NEUTROPHILS % 66.9 % (36.0-66.0); PLATELET COUNT, AUTOMATED 239 10^3/uL (150-450); RED BLOOD COUNT 4.57 10^6/uL (4.00-5.40); WHITE BLOOD COUNT 9.7 10^3/uL (4.0-10.0)
[2018-10-30 21:16] LABS: INR 1.02; PROTHROMBIN TIME 13.5 SECONDS (12.1-14.4)
[2018-10-30 21:24] LABS: BLOOD UREA NITROGEN 9 MG/DL (7-18); CALCIUM LEVEL 7.7 MG/DL (8.5-10.1); CARBON DIOXIDE LEVEL 26 MEQ/L (21-32); CHLORIDE LEVEL 107 MEQ/L (98-107); CREATININE FOR GFR 0.72 MG/DL (0.55-1.30); GLOMERULAR FILTRATION RATE > 60.0 (>60); GLUCOSE, FASTING 102 MG/DL (70-100); POTASSIUM SERUM 3.5 MEQ/L (3.5-5.1); SODIUM LEVEL 140 MEQ/L (136-145)
[2018-10-30] MEDS ORDERED: MORPHINE 4 MG/ML 1ML VIAL/SYRINGE (J2270) IV ONE (21:30)
[2018-10-30 21:31] LABS: HCG, SERUM QUALITATIVE NEGATIVE (NEGATIVE)
[2018-10-30 21:44] VITALS: BP 120/70
[2018-10-30] MEDS ORDERED: NAPR500T6 PO (21:47)
[2018-10-30] MEDS ORDERED: OXYC1TAB23 PO (21:47)
[2018-11-09] MEDS ORDERED: HYDR50CA2 PO (10:01)
[2018-11-09] MEDS ORDERED: TOPI25CA PO (10:01)
[2018-11-09] MEDS ORDERED: ARIP1TAB10 PO (10:01)
[2018-11-09] MEDS ORDERED: TRAZ1TAB14 PO (10:01)
== END 2018-10-30 21:55 | disposition home or self-care (01) ==
LOC: M ED 19:59
DX: N93.8 Other specified abnormal uterine and vaginal bleeding (principal); D50.0 Iron deficiency anemia secondary to blood loss (chronic); D25.9 Leiomyoma of uterus, unspecified; F31.9 Bipolar disorder, unspecified; F41.1 Generalized anxiety disorder; Z79.899 Other long term (current) drug therapy
CPT/HCPCS: 80048; 84703; 85025; 85610; 86850; 86900; 86901; 93041; 96374; 96375; 99284; J1885; J2270

== ENCOUNTER 2018-11-01 11:31 | Emergency (ER) | payer OTHER ==
[~2018-11-01] VITALS: Ht 157.5 cm; Wt 93.3 kg
[~2018-11-01 11:31] MED LIST changes: +NAPR500T6 PO; +OXYC1TAB23 PO
[2018-11-01] MEDS ORDERED: KETOROLAC 30 MG/ML VIAL (J1885) IV ONE (12:15)
[2018-11-01 12:33] LABS: BASO % 0.4 % (0.0-1.0); EOS # 0.1 10^3/uL (0.0-0.50); EOS % 1.1 % (0.0-3.0); HEMATOCRIT 31.3 % (36.0-47.0); HEMOGLOBIN 9.4 g/dl (12.0-15.5); LYMPH # 1.6 10^3/uL (1.5-4.5); LYMPH % 21.7 % (24.0-44.0); MEAN CORPUSCULAR HEMOGLOBIN 19.4 pg (27.0-33.0); MEAN CORPUSCULAR VOLUME 64.7 fl (80.0-96.0); MONO # 0.4 10^3/uL (0.0-0.8); MONO % 4.7 % (0.0-5.0); NEUTROPHILS # 5.3 10^3/uL (1.8-7.7); NEUTROPHILS % 71.7 % (36.0-66.0); PLATELET COUNT, AUTOMATED 236 10^3/uL (150-450); RED BLOOD COUNT 4.84 10^6/uL (4.00-5.40); WHITE BLOOD COUNT 7.4 10^3/uL (4.0-10.0)
[2018-11-01 12:53] LABS: BLOOD UREA NITROGEN 9 MG/DL (7-18); CALCIUM LEVEL 7.9 MG/DL (8.5-10.1); CARBON DIOXIDE LEVEL 28 MEQ/L (21-32); CHLORIDE LEVEL 107 MEQ/L (98-107); GLOMERULAR FILTRATION RATE > 60.0 (>60); GLUCOSE, FASTING 96 MG/DL (70-100); HCG, SERUM QUALITATIVE NEGATIVE (NEGATIVE); SODIUM LEVEL 140 MEQ/L (136-145)
[2018-11-01] MEDS ORDERED: ACETAMINOPHEN 500 MG TAB PO ONE (13:30)
[2018-11-01] MEDS ORDERED: ACET-897 PO (13:30)
[2018-11-01] MEDS ORDERED: IBUP80TA PO (13:30)
[2018-11-01] MEDS ORDERED: OXAY1TAB PO (13:30)
[2018-11-01] MEDS ORDERED: PERCOCET 5MG/325MG TAB PO ONE (14:00)
[2018-11-01 14:07] VITALS: BP 120/71
[2018-11-09] MEDS ORDERED: HYDR50CA2 PO (10:01)
[2018-11-09] MEDS ORDERED: TOPI25CA PO (10:01)
[2018-11-09] MEDS ORDERED: ARIP1TAB10 PO (10:01)
[2018-11-09] MEDS ORDERED: TRAZ1TAB14 PO (10:01)
== END 2018-11-01 14:12 | disposition home or self-care (01) ==
LOC: M ED 11:31
DX: N93.9 Abnormal uterine and vaginal bleeding, unspecified (principal); D64.9 Anemia, unspecified; F31.9 Bipolar disorder, unspecified; D25.2 Subserosal leiomyoma of uterus; Z79.899 Other long term (current) drug therapy
CPT/HCPCS: 36415; 80048; 84703; 85025; 86850; 86900; 86901; 96374; 99284; J1885

== ENCOUNTER 2018-11-05 20:23 | Emergency (ER) | payer OTHER ==
[~2018-11-05] VITALS: Ht 157.5 cm; Wt 92.3 kg
[~2018-11-05 20:23] MED LIST changes: +ACET-897 PO; +OXAY1TAB PO
[2018-11-05] MEDS ORDERED: OXYC-517 (20:31)
[2018-11-05] MEDS ORDERED: NS 1,000 ML IV ONE (21:45)
[2018-11-05 22:26] LABS: BASO % 0.3 % (0.0-1.0); EOS # 0.1 10^3/uL (0.0-0.50); EOS % 1.2 % (0.0-3.0); HEMATOCRIT 28.2 % (36.0-47.0); HEMOGLOBIN 8.5 g/dl (12.0-15.5); LYMPH # 2.5 10^3/uL (1.5-4.5); LYMPH % 25.6 % (24.0-44.0); MEAN CORPUSCULAR HEMOGLOBIN 19.5 pg (27.0-33.0); MEAN CORPUSCULAR HGB CONC 30.1 g/dl (32.0-36.5); MEAN CORPUSCULAR VOLUME 64.5 fl (80.0-96.0); MONO # 0.5 10^3/uL (0.0-0.8); MONO % 5.4 % (0.0-5.0); NEUTROPHILS # 6.7 10^3/uL (1.8-7.7); NEUTROPHILS % 67.1 % (36.0-66.0); PLATELET COUNT, AUTOMATED 278 10^3/uL (150-450); RED BLOOD COUNT 4.37 10^6/uL (4.00-5.40); WHITE BLOOD COUNT 9.9 10^3/uL (4.0-10.0)
[2018-11-05 22:39] LABS: INR 1.03; PROTHROMBIN TIME 13.6 SECONDS (12.1-14.4)
[2018-11-05 22:40] LABS: PARTIAL THROMBOPLASTIN TIME 27.9 SECONDS (25.4-37.6)
[2018-11-05 22:58] LABS: HCG, SERUM QUALITATIVE NEGATIVE (NEGATIVE)
[2018-11-05 23:00] LABS: ALBUMIN 3.3 GM/DL (3.2-5.2); ALT/SGPT 40 U/L (12-78); BILIRUBIN,DIRECT < 0.1 MG/DL (0.0-0.2); BILIRUBIN,TOTAL 0.2 MG/DL (0.2-1.0); BLOOD UREA NITROGEN 6 MG/DL (7-18); CALCIUM LEVEL 7.9 MG/DL (8.5-10.1); CARBON DIOXIDE LEVEL 29 MEQ/L (21-32); CHLORIDE LEVEL 106 MEQ/L (98-107); CREATININE FOR GFR 0.74 MG/DL (0.55-1.30); GLOMERULAR FILTRATION RATE > 60.0 (>60); GLUCOSE, FASTING 141 MG/DL (70-100); LIPASE 68 U/L (73-393); POTASSIUM SERUM 3.6 MEQ/L (3.5-5.1); SODIUM LEVEL 141 MEQ/L (136-145); TOTAL PROTEIN 7.2 GM/DL (6.4-8.2)
[2018-11-06 00:34] VITALS: BP 129/75
[2018-11-09] MEDS ORDERED: TRAZ1TAB14 PO (10:01)
[2018-11-09] MEDS ORDERED: TOPI25CA PO (10:01)
[2018-11-09] MEDS ORDERED: ARIP1TAB10 PO (10:01)
[2018-11-09] MEDS ORDERED: HYDR50CA2 PO (10:01)
== END 2018-11-06 00:36 | disposition home or self-care (01) ==
LOC: M ED 20:23
DX: R42 Dizziness and giddiness (principal); N89.9 Noninflammatory disorder of vagina, unspecified

== ENCOUNTER 2018-11-10 05:38 | Inpatient (IN) | payer OTHER ==
[~2018-11-10] VITALS: Ht 157.5 cm; Wt 93.2 kg
[2018-11-10] VITALS (8 sets, daily range): BP systolic 115–131; BP diastolic 62–70
[~2018-11-10 05:38] MED LIST changes: +ARIP1TAB10 PO; +HYDR50CA2 PO; +OXYC-517; +TOPI25CA PO; +TRAZ1TAB14 PO
[2018-11-10] MEDS ORDERED: LR 1,000 ML IV SCH ×2 (05:45→11:15)
[2018-11-10] MEDS ORDERED: cefoTEtan DISODIUM 2 GM in D5W MINI-BAG PLUS 50 ML IV ONE (05:45)
[2018-11-10 06:16] LABS: HEMATOCRIT 28.9 % (36.0-47.0); HEMOGLOBIN 8.8 g/dl (12.0-15.5); MEAN CORPUSCULAR HEMOGLOBIN 19.5 pg (27.0-33.0); MEAN CORPUSCULAR HGB CONC 30.4 g/dl (32.0-36.5); MEAN CORPUSCULAR VOLUME 63.9 fl (80.0-96.0); PLATELET COUNT, AUTOMATED 318 10^3/uL (150-450); RED BLOOD COUNT 4.52 10^6/uL (4.00-5.40); WHITE BLOOD COUNT 10.5 10^3/uL (4.0-10.0)
[2018-11-10 06:49] LABS: HCG, SERUM QUALITATIVE NEGATIVE (NEGATIVE)
[2018-11-10] MEDS ORDERED: BUPIVACAINE HCL 0.25% 30 ML VIAL As Ordered ONE (07:16)
[2018-11-10] MEDS ORDERED: BUPIVACAINE HCL 0.5% 30 ML VIAL As Ordered ONE (07:16)
[2018-11-10] MEDS ORDERED: fentaNYL 250 MCG/5 ML INJECTION (J3010) As Ordered ONE (07:19)
[2018-11-10] MEDS ORDERED: ROCURONIUM BROMIDE 50 MG/5 ML VIAL As Ordered ONE ×2 (07:19→08:26)
[2018-11-10] MEDS ORDERED: PROPOFOL 200 MG/20 ML VIAL As Ordered ONE (07:19)
[2018-11-10] MEDS ORDERED: MIDAZOLAM INJ 2 MG/2 ML VIAL (J2250) As Ordered ONE (07:20)
[2018-11-10] MEDS ORDERED: LIDOCAINE 2% INJ 100 MG/5 ML SDV (FOR ANES.) As Ordered ONE (07:36)
[2018-11-10] MEDS ORDERED: dexameTHASONE 4 MG/ML 1ML VIAL (J1100) As Ordered ONE (08:25)
[2018-11-10] MEDS ORDERED: ACETAMINOPHEN 1000MG 100ML IV BTL (OFIRMEV) (J0131 PER 10MG) As Ordered ONE (08:34)
[2018-11-10] MEDS ORDERED: GLYCOPYRROLATE INJ 0.2 MG/ML 2 ML VIAL As Ordered ONE (08:45)
[2018-11-10] MEDS ORDERED: NEOSTIGMINE 10 MG/10 ML VIAL (J2710) As Ordered ONE (08:45)
[2018-11-10] MEDS ORDERED: KETOROLAC 60 MG/2 ML VIAL (J1885) As Ordered ONE (08:45)
[2018-11-10] MEDS ORDERED: ONDANSETRON 4MG/2ML VIAL (J2405) As Ordered ONE (08:45)
[2018-11-10] MEDS ORDERED: HYDROmorphone HCL 2 MG/ML 1ML VIAL (J1170) As Ordered ONE (08:45)
[2018-11-10] MEDS ORDERED: ePHEDrine SULFATE 25 MG/5 ML(5MG/ML) SYRINGE As Ordered ONE (09:46)
[2018-11-10] MEDS ORDERED: METHYLENE BLUE 0.5% (5MG/ML) 10 ML AMP (PROVAYBLUE)(Q9968 PER 1MG) As Ordered ONE (09:53)
[2018-11-10] MEDS ORDERED: FLUORESCEIN 10% (100MG/ML) 5 ML VIAL As Ordered ONE (09:55)
[2018-11-10] MEDS ORDERED: ESMOLOL INJ 100MG/10ML VIAL As Ordered ONE (10:21)
[2018-11-10] MEDS: LR 1,000 ML IV SCH ×2 (10:41→19:32)
[2018-11-10] MEDS ORDERED: PERCOCET 5MG/325MG TAB PO PRN (10:45)
[2018-11-10] MEDS ORDERED: ONDANSETRON 4MG/2ML VIAL (J2405) IV PRN ×2 (10:45→11:15)
[2018-11-10] MEDS ORDERED: fentaNYL 100 MCG/2 ML INJECTION (J3010) As Ordered ONE (10:56)
[2018-11-10] MEDS: fentaNYL 100 MCG/2 ML INJECTION (J3010) IV PRN ×4 (10:59→11:15)
[2018-11-10] MEDS: PERCOCET 5MG/325MG TAB PO PRN ×4 (11:15→23:41)
[2018-11-10] MEDS ORDERED: METOCLOPRAMIDE INJ 10MG/2ML VIAL (J2765) IV PRN (11:15)
[2018-11-10] MEDS: KETOROLAC 30 MG/ML VIAL (J1885) IV SCH ×2 (15:27→21:30)
[2018-11-10] MEDS: DOCUSATE SODIUM 100 MG CAP PO SCH (21:33)
[2018-11-11 02:00] VITALS: BP 134/84
[2018-11-11 04:06] LABS: BASO % 0.2 % (0.0-1.0); EOS % 0.2 % (0.0-3.0); HEMATOCRIT 22.9 % (36.0-47.0); LYMPH # 2.8 10^3/uL (1.5-4.5); LYMPH % 23.5 % (24.0-44.0); MEAN CORPUSCULAR HEMOGLOBIN 19.5 pg (27.0-33.0); MEAN CORPUSCULAR HGB CONC 30.6 g/dl (32.0-36.5); MEAN CORPUSCULAR VOLUME 63.8 fl (80.0-96.0); MONO # 0.7 10^3/uL (0.0-0.8); NEUTROPHILS # 8.4 10^3/uL (1.8-7.7); NEUTROPHILS % 69.5 % (36.0-66.0); PLATELET COUNT, AUTOMATED 264 10^3/uL (150-450); RED BLOOD COUNT 3.59 10^6/uL (4.00-5.40); WHITE BLOOD COUNT 12.1 10^3/uL (4.0-10.0)
[2018-11-11] MEDS: KETOROLAC 30 MG/ML VIAL (J1885) IV SCH (04:14)
[2018-11-11] MEDS: PERCOCET 5MG/325MG TAB PO PRN ×2 (04:21→08:35)
[2018-11-11 06:00] VITALS: BP 124/69
--- NOTE | 2018-11-11 07:58 | IPNPDOC ---
Text Note Date of Service The patient was seen on 11/11/18. NOTE POD1 uncomplicated TLHRSO, path pending States pain fairly well controlled overnight, [place] out at 0100, tried to urinate at 0400, nothing would come out but a small amount of blood (expected). Just voided 400 cc's, not bloody. No VB in the bed. No CP/SOB/LP. No N/V. Tolerated dinner last night. VSSAF NAD A&O, daughter present to translate UO >100 cc's/hr since surgery RRR CTAB Abd appropr tenderness, inc's x3 healing well, no induration Preop HCT 28.9 -> This AM 22.9 a/p: Discharge, meeting all criteria- voiding, ambulatory, pain controlled, tolerating PO. F/U 1-2 wks in clinic. Nothing in vagina for 3 months. No heavy lifting >10 lbs 1 month. A-FIB/CHADSVASC A-FIB History Current/History of A-Fib/PAF?: No Current Oral Anticoagulant The: No VS,Fishbone, I+O VS, Fishbone, I+O Laboratory Tests 11/11/18 03:58 Red Blood Count 3.59 L, Mean Corpuscular Volume 63.8 L, Mean Corpuscular Hemoglobin 19.5 L, Mean Corpuscular Hemoglobin Concent 30.6 L, Red Cell Distribution Width 24.1 H, Neutrophils (%) (Auto) 69.5 H, Lymphocytes (%) (Auto) 23.5 L, Monocytes (%) (Auto) 6.0 H, Eosinophils (%) (Auto) 0.2, Basophils (%) (Auto) 0.2, Neutrophils # (Auto) 8.4 H, Lymphocytes # (Auto) 2.8, Monocytes # (Auto) 0.7, Eosinophils # (Auto) 0.0, Basophils # (Auto) 0.0 Vital Signs Date Time Temp Pulse Resp B/P (MAP) Pulse Ox O2 Delivery O2 Flow Rate FiO2 11/11/18 06:00 97.8 79 16 124/69 (87) 96 11/10/18 11:10 2 I&O- Last 24 Hours up to 6 AM 11/11/18 05:59 Intake Total 2897 ml Output Total 2325 ml Balance 572 ml SESSIONS,DAKOTA Velazquez MD Nov 11, 2018 07:58
--- NOTE | 2018-11-11 08:13 | DS.PDOC ---
Discharge Summary General Date of Admission Nov 10, 2018 at 05:38 Date of Discharge [id number] Discharge Summary ADMITTING DIAGNOSES: Menorrhagia, anemia, complex right adnexal mass DISCHARGE DIAGNOSES: Same with addition of right adnexal endometrioma/endometriosis, s/p uncomplicated TLHRSO HOSPITAL COURSE: Admitted and surgery uncomplicated. Postop course also uncomplicated and on morning of POD1 met all d/c criteria, voiding, eating, pain controlled, ambulating. DISCHARGE MEDICATIONS: Motrin, Colace, Percocet DISCHARGE INSTRUCTIONS: Nothing in the vagina for 12weeks. F/U in OBGYN clinic in 1-[address] Sessions, already scheduled. Sessions Vital Signs/I&Os Vital Signs Date Time Temp Pulse Resp B/P (MAP) Pulse Ox O2 Delivery O2 Flow Rate FiO2 11/11/18 06:00 97.8 79 16 124/69 (87) 96 11/10/18 11:10 2 I&O- Last 24 Hours up to 6 AM 11/11/18 06:00 Intake Total 2897 ml Output Total 2325 ml Balance 572 ml Laboratory Data Labs 24H Laboratory Tests 2 11/11/18 03:58: Immature Granulocyte % (Auto) 0.6, White Blood Count 12.1H, Red Blood Count 3.59L, Hemoglobin 7.0L, Hematocrit 22.9L, Mean Corpuscular Volume 63.8L, Mean Corpuscular Hemoglobin 19.5L, Mean Corpuscular Hemoglobin Concent 30.6L, Red Cell Distribution Width 24.1H, Platelet Count 264, Neutrophils (%) (Auto) 69.5H, Lymphocytes (%) (Auto) 23.5L, Monocytes (%) (Auto) 6.0H, Eosinophils (%) (Auto) 0.2, Basophils (%) (Auto) 0.2, Neutrophils # (Auto) 8.4H, Lymphocytes # (Auto) 2.8, Monocytes # (Auto) 0.7, Eosinophils # (Auto) 0.0, Basophils # (Auto) 0.0, Nucleated Red Blood Cells % (auto) 0.0 CBC/BMP Laboratory Tests 11/11/18 03:58 Red Blood Count 3.59 L, Mean Corpuscular Volume 63.8 L, Mean Corpuscular Hemoglobin 19.5 L, Mean Corpuscular Hemoglobin Concent 30.6 L, Red Cell Distribution Width 24.1 H, Neutrophils (%) (Auto) 69.5 H, Lymphocytes (%) (Auto) 23.5 L, Monocytes (%) (Auto) 6.0 H, Eosinophils (%) (Auto) 0.2, Basophils (%) (Auto) 0.2, Neutrophils # (Auto) 8.4 H, Lymphocytes # (Auto) 2.8, Monocytes # (Auto) 0.7, Eosinophils # (Auto) 0.0, Basophils # (Auto) 0.0 Discharge Medications Scheduled Aripiprazole (Aripiprazole) 15 Mg Tablet, 15 MG PO BID, (Reported) Hydroxyzine Pamoate (Hydroxyzine Pamoate) 50 Mg Capsule, 50 MG PO DAILY for anxiety, (Reported) Topiramate (Topiramate) 25 Mg Cap.sprink, 50 MG PO BID, (Reported) Trazodone HCl (Trazodone HCl) 150 Mg Tablet, 150 MG PO QPM, (Reported) Miscellaneous Medications Oxycodone HCl (Oxycodone HCl) 5 Mg Tablet, (Reported) Allergies Coded Allergies: No Known Allergies (Unverified , 10/21/18) SESSIONS,DAKOTA Velazquez MD Nov 11, 2018 08:13
[2018-11-11] MEDS ORDERED: COLA100C5 PO (08:26)
[2018-11-11] MEDS ORDERED: IBUP80TA PO (08:26)
[2018-11-11] MEDS ORDERED: PERCOCET PO (08:26)
[2018-11-11] MEDS: DOCUSATE SODIUM 100 MG CAP PO SCH (08:36)
[2018-11-11 10:00] VITALS: BP 119/73
--- NOTE | 2018-11-11 15:22 | RO ---
DATE OF PROCEDURE: 11/10/2018 PREOPERATIVE DIAGNOSES: Menorrhagia, anemia, right complex adnexal mass. POSTOPERATIVE DIAGNOSES: Menorrhagia, anemia, right complex adnexal mass, with addition of an obvious endometrioma on the right ovary; therefore, endometriosis also present. OPERATIVE PROCEDURE: Total laparoscopic hysterectomy, right salpingo-oophorectomy, and cystoscopy. SURGEON: Dr. Rafa Urena SLIVER FORMER: Dr. Alvino Dye ANESTHESIA: General endotracheal. FINDINGS: Uncomplicated, straightforward total laparoscopic hysterectomy and right salpingo-oophorectomy with some obvious thickened tissue surrounding the uterus and most especially around the right adnexa including the right fallopian tube and ovary consistent with endometrioma and endometriosis, also no left fallopian tube present, normal left ovary (prior tubal ligation) and normal upper abdomen. ESTIMATED BLOOD LOSS: 200 mL. DRAINS: 350 mL of clear yellow urine throughout the case, then fluorescent yellow urine at the end of case due to fluorescein added with cystoscopy. FLUIDS REPLACED: 1200 mL of lactated Ringer's. PREOPERATIVE ANTIBIOTICS: Cefotetan 2 grams IV. SPECIMENS: Uterus, cervix, right tube and ovary. INDICATION: Patient was admitted a few weeks ago from the emergency room with symptomatic anemia and was transfused 2 units of blood. Her story was that over the last 10 years she has been admitted four times and received transfusions of blood due to intermittent heavy menstrual cycles. She was also having significant pain in her pelvis and on ultrasound it was obvious that the complex right adnexal mass was likely the culprit. Informed consent obtained for hysterectomy and right salpingo-oophorectomy. Hematocrit this morning was 29.8 with normal platelets. DESCRIPTION OF PROCEDURE: Patient was taken to the operating room with an IV in place after she was seen in the holding area and with sales technician present confirmed all was ready for the planned procedure. She was placed in dorsal lithotomy position after general endotracheal anesthesia was obtained without difficulty. Exam under anesthesia was performed. She was then prepped and draped in normal sterile fashion. With a speculum isolated the cervix placed a tenaculum on the anterior lip, then secured the VCare uterine manipulator green cervical cup to the cervix with a [id number] suture using #0 Vicryl. The VCare was easily placed without need for cervical dilation. There was no fear of uterine perforation with the uterine manipulator placement. I then changed my gloves and attention was turned to her abdomen. The patient was flattened out, dropped down to waist level. I also bathed the area with 0.25% Marcaine and a 5 mm supraumbilical incision was made. An Optiview trocar was placed directly into the abdomen tenting the anterior abdominal wall up as far as possible. This was done under direct visualization with an Optiview trocar. Pneumoperitoneum was easily obtained. There was a small amount of omental scarring near the trocar placement. We then placed a right lower quadrant 10-mm port in exactly the same fashion after a 0.25% Marcaine bath. We then placed the camera through the right lower quadrant port and with the LigaSure easily took down the omental adhesions to the anterior abdominal wall. They were small and flimsy and obviously did not contain any bowel. We then placed left lower quadrant trocar in exactly the same method as the first two and put the patient in Trendelenburg. We elevated the uterus and findings were as described above. We identified both ureters bilaterally without difficulty and after ensuring the ureter was no where near the infundibular pelvic ligament, we transected this on the right and then hugged just underneath the ovary and fallopian tube across the mesosalpinx and down the right side of the uterus and cervix successfully cauterizing and ligating the uterine artery, cardinal ligament and uterosacral ligament. This was then repeated on the patient's left without difficulty; however, the left ovary was spared. There was no left fallopian tube to remove. The patient had a prior tubal ligation and it is assumed that the fallopian tube was removed at that point. We scored across the anterior part of the lower uterine segment/cervix all while putting cephalad pressure on the VCare manipulator. The vesicouterine peritoneum easily came free and dissected down without difficulty. We then circumferentially amputated the cervix from the vaginal fornix using a L-hook monopolar cautery. There were a few brisk bleeders noted, which were easily identified and taken care of with both the monopolar cautery device and the LigaSure in one instance. After we amputated the cervix, the entire uterus, right tube, right ovary, and VCare uterine manipulator were easily removed through the vagina by myself. We then turned off the gas, placed a Sponge-Stick to ensure no bowel present and then closed the vaginal cuff from right to the midline and left to the midline where I joined the sutures using #0 Vicryl in a running locked suture times two. There was never fear of bowel or bladder injury and the closure went smoothly without complication. I then performed a cystoscopy with fluorescein injected through the patient's IV and confirmed usual jets bilaterally. We then changed gloves again and we returned our attention to the abdomen, at which point with the camera we were able to confirm hemostasis from all surgical pedicles and surgical edges and with the suction channeler irrigated all edges and removed all clot and non-clotted blood from the pouch of Alfredo and the surrounding pelvis and lower abdomen. We then closed both the right lower quadrant and left lower quadrant fascial incisions using Denny-Marcus and #0 Vicryl without difficulty. Digital exploration of both revealed the fascia was closed. We then removed the camera, allowed as much CO2 gas to escape as possible and removed the supraumbilical port under direct visualization also. There was never fear of bowel or bladder injury. All skin incisions were closed with #4-0 Monocryl in a subcuticular fashion and Dermabond was placed over all three incisions as well. The patient was awakened from general anesthesia in stable condition and transferred to the postanesthesia care unit (PACU) without difficulty. All counts were correct before, during and after the case. AUGUSTO
[2018-11-11] MEDS ORDERED: IBUPROFEN 800 MG TAB PO SCH (18:00)
== END 2018-11-11 11:44 | disposition home or self-care (01) | DRG 743 ==
LOC: M OR 05:38 → M MSPAV 13:08
PROVIDERS: ADMIT Obstetrics & Gynecology; ATTEND Obstetrics & Gynecology
PROC: 0UT04ZZ Resection of Right Ovary, Percutaneous Endoscopic Approach (ICD-10-PCS; 2018-11-10)
PROC: 0UT54ZZ Resection of Right Fallopian Tube, Percutaneous Endoscopic Approach (ICD-10-PCS; 2018-11-10)
PROC: 0UT94ZZ Resection of Uterus, Percutaneous Endoscopic Approach (ICD-10-PCS; principal; 2018-11-10 07:30)
PROC: 0UTC4ZZ Resection of Cervix, Percutaneous Endoscopic Approach (ICD-10-PCS; 2018-11-10 07:30)
DX: N92.0 Excessive and frequent menstruation with regular cycle (principal); D64.9 Anemia, unspecified; N80.0 Endometriosis of uterus; Z79.899 Other long term (current) drug therapy

== ENCOUNTER 2018-12-28 21:29 | Emergency (ER) | payer OTHER ==
[~2018-12-28] VITALS: Ht 157.5 cm; Wt 109.1 kg
[~2018-12-28 21:29] MED LIST changes: +COLA100C5 PO; +PERCOCET PO
[2018-12-28] MEDS ORDERED: METOCLOPRAMIDE INJ 10MG/2ML VIAL (J2765) IV ONE (22:30)
[2018-12-28] MEDS ORDERED: KETOROLAC 30 MG/ML VIAL (J1885) IV ONE (22:30)
[2018-12-28 23:00] VITALS: BP 160/84
== END 2018-12-29 01:22 | disposition home or self-care (01) ==
LOC: M ED 21:29
DX: G43.909 Migraine, unspecified, not intractable, without status migrainosus (principal); Z79.899 Other long term (current) drug therapy
CPT/HCPCS: 96374; 96375; 99284; J1885; J2765

== ENCOUNTER 2019-02-14 12:20 | Emergency (ER) | payer OTHER ==
[~2019-02-14] VITALS: Ht 157.5 cm; Wt 90.2 kg
[~2019-02-14 12:20] MED LIST changes: -TOPI25CA PO; +TOPI25CA3 PO
[2019-02-14 13:17] LABS: BASO % 0.4 % (0.0-1.0); EOS # 0.1 10^3/uL (0.0-0.50); HEMATOCRIT 27.8 % (36.0-47.0); HEMOGLOBIN 8.2 g/dl (12.0-15.5); LYMPH # 2.4 10^3/uL (1.5-4.5); LYMPH % 23.1 % (24.0-44.0); MEAN CORPUSCULAR HEMOGLOBIN 17.9 pg (27.0-33.0); MEAN CORPUSCULAR HGB CONC 29.5 g/dl (32.0-36.5); MEAN CORPUSCULAR VOLUME 60.6 fl (80.0-96.0); MONO # 0.5 10^3/uL (0.0-0.8); MONO % 4.5 % (0.0-5.0); NEUTROPHILS # 7.2 10^3/uL (1.8-7.7); NEUTROPHILS % 70.1 % (36.0-66.0); PLATELET COUNT, AUTOMATED 310 10^3/uL (150-450); RED BLOOD COUNT 4.59 10^6/uL (4.00-5.40); WHITE BLOOD COUNT 10.2 10^3/uL (4.0-10.0)
[2019-02-14 13:52] LABS: ALBUMIN 3.3 GM/DL (3.2-5.2); ALT/SGPT 35 U/L (12-78); BILIRUBIN,DIRECT < 0.1 MG/DL (0.0-0.2); BILIRUBIN,TOTAL 0.3 MG/DL (0.2-1.0); BLOOD UREA NITROGEN 11 MG/DL (7-18); CALCIUM LEVEL 8.6 MG/DL (8.5-10.1); CARBON DIOXIDE LEVEL 30 MEQ/L (21-32); CHLORIDE LEVEL 108 MEQ/L (98-107); CREATININE FOR GFR 0.75 MG/DL (0.55-1.30); GLOMERULAR FILTRATION RATE > 60.0 (>60); GLUCOSE, FASTING 105 MG/DL (70-100); LIPASE 109 U/L (73-393); POTASSIUM SERUM 4.1 MEQ/L (3.5-5.1); SODIUM LEVEL 141 MEQ/L (136-145); TOTAL PROTEIN 7.7 GM/DL (6.4-8.2)
[2019-02-14] MEDS ORDERED: ONDANSETRON 4MG/2ML VIAL (J2405) IV ONE (15:15)
[2019-02-14] MEDS ORDERED: KETOROLAC 30 MG/ML VIAL (J1885) IV ONE (15:15)
[2019-02-14 15:34] LABS: HCG, SERUM QUALITATIVE NEGATIVE (NEGATIVE)
[2019-02-14] MEDS ORDERED: ISOVUE-370 76% 100ML VIAL (Q9967) As Ordered ONE (15:51)
[2019-02-14 15:56] LABS: CK-MB VALUE MASS < 1.0 NG/ML (<3.6); CPK CREATINE PHOSPHOKINASE 39 U/L (26-192); MB/CK RELATIVE INDEX 2.56 (< OR =4); TROPONIN I < 0.02 NG/ML (< 0.10)
--- NOTE | 2019-02-14 16:14 | REP ---
Clinical: Acute right lower quadrant pain. Technique: Axial contrast enhanced images from the lung bases to the pubic symphysis using 100 ml Isovue 370 intravenous contrast material with coronal and sagittal re-formations. Findings: Lung bases are clear. Visualized heart and pericardium normal. Liver, spleen, pancreas, bilateral adrenal glands and kidneys are normal. Evidence of prior cholecystectomy. The enteric system is without obstruction or acute inflammatory process. Normal terminal ileum and appendix are identified in the right lower quadrant. There is a very subtle area of fat stranding along the anti mesenteric border of the cecum raising the possibility of epiploic appendagitis or small focal fat infarction (images 65 - 76). Pelvis demonstrates normal bladder and evidence of prior hysterectomy. No ascites. No free air. No adenopathy. Abdominal aorta and vasculature normal. Osseous structures are intact. Impression: 1. Very subtle fat stranding adjacent to the cecum raising the possibility of epiploic appendagitis/focal fatty infarction. 2. Otherwise normal appearance to the cecum and normal appearance to the terminal ileum and appendix. 3. No further acute abdominopelvic pathology appreciated. No ascites. No adenopathy. Electronically Signed by Stuart Rivas MD 02/14/2019 04:06 P
--- NOTE | 2019-02-14 17:00 | REP ---
Nickel: Right-sided pelvic pain. Technique: Transabdominal pelvic ultrasound using curved array transducer. Findings: The patient is noted to be status post hysterectomy and right oophorectomy. Left ovary appears normal and measures 3.2 x 1.7 x 2.2 cm. No pelvic fluid or mass lesion. Impression: No acute abnormality. Prior hysterectomy and right oophorectomy. Electronically Signed by Stuart Rivas MD 02/14/2019 04:51 P
[2019-02-14] MEDS ORDERED: MORPHINE 4 MG/ML 1ML VIAL/SYRINGE (J2270) IV ONE (17:15)
[2019-02-14] MEDS ORDERED: ZOFR8TAB24 PO (18:12)
[2019-02-14 18:36] VITALS: BP 117/69
--- NOTE | 2019-02-14 20:27 | ECGEPIP ---
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
== END 2019-02-14 18:37 | disposition home or self-care (01) ==
LOC: M ED 12:20
DX: K65.9 Peritonitis, unspecified (principal); D64.9 Anemia, unspecified; F31.9 Bipolar disorder, unspecified
CPT/HCPCS: 74177; 76856; 80048; 80076; 81001; 82550; 82553; 83690; 84484; 84703; 85025; 93005; 99284; J1885; J2270; J2405; Q9967

== ENCOUNTER 2019-02-16 10:42 | Emergency (ER) | payer OTHER ==
[~2019-02-16] VITALS: Ht 157.5 cm; Wt 90.2 kg
[~2019-02-16 10:42] MED LIST changes: +ZOFR8TAB24 PO
[2019-02-16 11:34] LABS: BASO % 0.3 % (0.0-1.0); EOS # 0.1 10^3/uL (0.0-0.50); EOS % 0.9 % (0.0-3.0); HEMATOCRIT 28.9 % (36.0-47.0); HEMOGLOBIN 8.3 g/dl (12.0-15.5); LYMPH # 2.5 10^3/uL (1.5-4.5); LYMPH % 26.6 % (24.0-44.0); MEAN CORPUSCULAR HEMOGLOBIN 17.4 pg (27.0-33.0); MEAN CORPUSCULAR HGB CONC 28.7 g/dl (32.0-36.5); MEAN CORPUSCULAR VOLUME 60.6 fl (80.0-96.0); MONO # 0.5 10^3/uL (0.0-0.8); MONO % 4.8 % (0.0-5.0); NEUTROPHILS # 6.2 10^3/uL (1.8-7.7); NEUTROPHILS % 66.7 % (36.0-66.0); PLATELET COUNT, AUTOMATED 324 10^3/uL (150-450); RED BLOOD COUNT 4.77 10^6/uL (4.00-5.40); WHITE BLOOD COUNT 9.3 10^3/uL (4.0-10.0)
[2019-02-16] MEDS ORDERED: METOCLOPRAMIDE INJ 10MG/2ML VIAL (J2765) IV ONE (11:45)
[2019-02-16] MEDS ORDERED: KETOROLAC 30 MG/ML VIAL (J1885) IV ONE (11:45)
[2019-02-16] MEDS ORDERED: NS 1,000 ML IV ONE (11:45)
[2019-02-16] MEDS ORDERED: ISOVUE-370 76% 100ML VIAL (Q9967) As Ordered ONE (11:55)
[2019-02-16 11:57] LABS: ALBUMIN 3.4 GM/DL (3.2-5.2); BILIRUBIN,DIRECT 0.1 MG/DL (0.0-0.2); BILIRUBIN,TOTAL 0.4 MG/DL (0.2-1.0); TOTAL PROTEIN 7.8 GM/DL (6.4-8.2)
--- NOTE | 2019-02-16 12:24 | REP ---
Clinical: Acute severe right-sided abdominal pain. Technique: Axial contrast enhanced images from the lung bases to the pubic symphysis using 100 ml Isovue 370 intravenous contrast material with coronal and sagittal re-formations. Comparison: 02/14/2019 Findings: Mild focal fatty infiltration along the anti mesenteric border of the cecum and proximal ascending colon is again appreciated and again suggests focal fatty infarction and/or epiploic appendagitis. The cecum itself as well as the terminal ileum and appendix appear normal. The remainder of the small and large bowel is unremarkable and there is no evidence for bowel obstruction or further acute inflammatory process. A small amount of free fluid identified in the pelvis is nonspecific. Liver, spleen, pancreas, bilateral adrenal glands and kidneys are normal. Pelvis demonstrates normal bladder and evidence of prior hysterectomy. No ascites. No free air. No adenopathy. Abdominal aorta and vasculature normal. Lung bases are clear. Impression: Mild focal fatty infiltration in the right lower quadrant as described above again noted and may reflect focal fatty infarction and/or epiploic appendagitis involving the cecum/proximal ascending colon. Electronically Signed by Stuart Rivas MD 02/16/2019 12:15 P
[2019-02-16] MEDS ORDERED: MIRA3350 PO (12:33)
[2019-02-16] MEDS ORDERED: KETO10TAB PO (12:33)
[2019-02-16 13:02] VITALS: BP 120/64
== END 2019-02-16 13:20 | disposition home or self-care (01) ==
LOC: M ED 10:42 → EDBD 10:42 → M ED 13:20
DX: K59.00 Constipation, unspecified (principal); K63.89 Other specified diseases of intestine
CPT/HCPCS: 36415; 74177; 80047; 80076; 81001; 83690; 85025; 96361; 96374; 96375; 99284; J1885; J2765; Q9967